=== PATIENT | male | born 1960 | race Caucasian/White ===

== ENCOUNTER 2019-07-23 16:08 | Observation (INO) | payer OTHER, SELFPAY ==
[2019-07-23] VITALS (9 sets, daily range): BP systolic 133–167; BP diastolic 88–108; PULSE 75–100; RESP 13–23; TEMP 36.1–36.9; O2SAT 98–100; BMI 25.7
--- NOTE | ~2019-07-23 | XR_ITS ---
EXAMINATION: XR chest 2V DATE: 07/23/2019 16:53 INDICATION: Central and right-sided dull chest pain. Belching. TECHNIQUE: PA and lateral views of the chest were obtained. COMPARISON: Chest radiograph dated 06/28/2015 FINDINGS: Unchanged mild biapical pleural-parenchymal scarring. Lungs remain otherwise clear with no new airspa ce opacities, pulmonary edema, pleural effusion or pneumothorax. The cardiomediastinal silhouette is normal. Cholecystectomy clips in right upper quadrant. Chronic mild anterior wedging of a midthoracic vertebral body, likely T7. IMPRESSION: 1. No acute cardiopulmonary disease. Reviewed, dictated and finalized at location A. UATION SPECIALIST
--- NOTE | 2019-07-23 16:09 | ECG_ITS ---
Measurements Intervals [place] Rate: 81 P: 59 MN: 147 QRS: 38 QRSD: 89 T: 55 QT: 336 QTc: 391 Interpretive Statements SINUS RHYTHM BORDERLINE ST ABNORMALITY- INFERIOR LEADS BORDERLINE ECG Electronically Signed On 07-23-2019 16:32:49 HAND SILVERING SUPERVISOR by Jett Cueva D.O.
[2019-07-23 16:24] LABS: Basophils Percent Auto 0.3 % (0.2-1.2); Eosinophils Absolute Auto 0.2 K/mm3 (0-0.3); Eosinophils Percent Auto 3.7 % (0-4.4); Hematocrit 45.8 % (42.0-52.0); Hemoglobin 15.3 g/dL (14.0-18.0); Immature Granulocyte Absolute 0.02 K/mm3 (0.00-0.031); Immature Granulocyte Percent A 0.3 % (0-0.5); Lymphocytes Absolute Auto 2.04 K/mm3 (0.9-3.2); Lymphocytes Percent Auto 32.4 % (18.3-44.2); Mean Corpuscular HGB Conc 33.4 g/dl (32-36); Mean Corpuscular Hemoglobin 30.7 pg (26-34); Mean Corpuscular Volume 91.8 fl (80-100); Mean Platelet Volume 10.8 fl (7.4-10.4); Monocytes Absolute Auto 0.4 K/mm3 (0.1-0.6); Monocytes Percent Auto 6.8 % (2.6-8.5); Neutrophils Absolute Auto 3.6 K/mm3 (1.3-6.7); Neutrophils Percent Auto 56.5 % (45.5-73.1); Platelet Count Result 173 k/mm3 (150-375); Red Blood Count 4.99 M/mm3 (4.6-6.20); Red Cell Distribution Width 12.1 % (11.5-14.5); White Blood Count 6.3 K/mm3 (4.5-10.0)
[2019-07-23 16:36] LABS: Partial Thromboplastin Time 30.5 SECONDS (22.3-36.8); Prothrombin Time 12.8 Seconds (11.1-14.7)
[2019-07-23 16:39] LABS: Blood Urea Nitrogen 15 mg/dL (9-20); Calcium 9.8 mg/dL (8.4-10.2); Carbon Dioxide 29 mmol/L (22-30); Chloride 97 mmol/L (98-107); Estimated Glomerular Filt Rate > 60; Glucose 94 mg/dL (75-110); Potassium 3.9 mmol/L (3.4-5.0); Sodium 138 mmol/L (137-145)
[2019-07-23 16:50] LABS: Troponin I < 0.012 ng/mL (0.000-0.034)
--- NOTE | 2019-07-23 17:23 | PC.NURSE ---
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
--- NOTE | 2019-07-23 17:24 | ED_ITS ---
I attest that this documentation has been prepared under the direction and in t he presence of Chicho Martins MD. Jasmyn Yu Scribe 07/23/19;17:24 HPI - Chest Pain General Chief Complaint: Chest Pain Stated Complaint: abnormal ekg Time Seen by Provider: 07/23/19 17:12 Related Data Allergies Allergy/AdvReac Type Severity Reaction Status Date / Time Sulfa (Sulfonamide Allergy Severe Hives / Verified 07/01/16 07:12 Antibiotics) Red Face Penicillins Allergy Unknown A BABY Verified 07/01/16 07:12 [facility] Social History Social History Gender identity (if verbalized by the patient): Male Course Vital Signs Vital signs: Vital Signs Temperature 36.9 C 07/23/19 16:13 Pulse Rate 84 07/23/19 16:13 Respiratory Rate 18 07/23/19 16:13 Blood Pressure 155/108 H 07/23/19 16:13 Pulse Oximetry 100 07/23/19 16:13 Temperature 36.9 C 07/23/19 16:13 Pulse Rate 89 07/23/19 17:20 Respiratory Rate 16 07/23/19 17:20 Blood Pressure 167/105 H 07/23/19 17:20 Pulse Oximetry 100 07/23/19 17:20 MDM - Chest Pain Lab Data Result diagrams: 07/23/19 16:16 07/23/19 16:16 Labs: Lab Results 07/23/19 07/23/19 07/23/19 Range/Units 16:16 16:16 16:16 WBC 6.3 (4.5-10.0) K/mm3 RBC 4.99 (4.6-6.20) M/mm3 Hgb 15.3 (14.0-18.0) g/dL Hct 45.8 (42.0-52.0) % MCV 91.8 (80-100) fl MCH 30.7 (26-34) pg MCHC 33.4 (32-36) g/dl RDW 12.1 (11.5-14.5) % Plt Count 173 (150-375) k/mm3 MPV 10.8 H (7.4-10.4) fl Immature Gran % (Auto) 0.3 (0-0.5) % Neut % (Auto) 56.5 (45.5-73.1) % Lymph % (Auto) 32.4 (18.3-44.2) % [place] % (Auto) 6.8 (2.6-8.5) % Eos % (Auto) 3.7 (0-4.4) % Baso % (Auto) 0.3 (0.2-1.2) % Lymph # (Auto) 2.04 (0.9-3.2) K/mm3 [place] # (Auto) 0.4 (0.1-0.6) K/mm3 Eos # (Auto) 0.2 (0-0.3) K/mm3 Baso # (Auto) 0.0 (0.0-0.1) K/mm3 Abs Immat Gran (auto) 0.02 (0.00-0.031) K/mm3 Absolute Neuts (auto) 3.6 (1.3-6.7) K/mm3 Absolute Nucleated RBC 0.0 (0.0-0.012) K/mm3 Nucleated RBC % 0.0 (0.0-0.2) % PT 12.8 (11.1-14.7) Seconds INR 1.0 APTT 30.5 (22.3-36.8) SECONDS Sodium 138 (137-145) mmol/L Potassium 3.9 (3.4-5.0) mmol/L Chloride 97 L (98-107) mmol/L Carbon Dioxide 29 (22-30) mmol/L BUN 15 (9-20) mg/dL Creatinine 0.90 (0.7-1.3) mg/dL Estim Creat Clear Calc Not Reportable Estimated GFR > 60 (59 - ) Glucose 94 (75-110) mg/dL Calcium 9.8 (8.4-10.2) mg/dL Troponin I < 0.012 (0.000-0.034) ng/mL
--- NOTE | 2019-07-23 18:19 | ED.CHESTPAIN ---
HPI - Chest Pain General Chief Complaint: Chest Pain Stated Complaint: abnormal ekg Time Seen by Provider: 07/23/19 17:12 Source: patient and RN notes reviewed Mode of arrival: other Limitations: no limitations History of Present Illness HPI narrative: Pt is a 59 y/o male who presents to the ED with c/o diffuse chest achy pain that began (07/18/19). Pt states that on Monday (07/21/19), the pain got better. He states that his pain will only last for a few hours. Pt notes that today he went to his PCP today and his PCP sent him to the ED for further evaluation. Pt states that his pain is resolved whenever he goes to sleep. Pt denies any aggravating factors. Pt reports bloating and belching, but denies a fever and SOB. MD complaint: chest pain Onset (ago): day(s) (5) Timing of current episode: episodic Pain location: other (diffuse) Quality: other (achy) Exacerbating factors: nothing Associated symptoms: other (belching, bloating) Related Data Home Medications Medication Instructions Recorded Confirmed aspirin [Aspir-Low] 81 mg PO DAILY 07/23/19 fexofenadine-pseudoephedrine 1 tablet PO Q12H PRN 07/23/19 [Seda-D 12 Hour] pantoprazole 40 mg PO QAM 07/23/19 propranolol 20 mg PO Q12H 07/23/19 Allergies Allergy/AdvReac Type Severity Reaction Status Date / Time Sulfa (Sulfonamide Allergy Severe Hives / Verified 07/01/16 07:12 Antibiotics) Red Face Penicillins Allergy Unknown A BABY Verified 07/01/16 07:12 Review of Systems Review of Systems: All systems reviewed & are unremarkable except as noted in HPI and below Constitutional: Constitutional: Denies fever(s) Cardiovascular: Cardiovascular: Reports chest pain (diffuse) Respiratory: Respiratory: Denies dyspnea Gastrointestinal: Gastrointestinal: Reports belching and Reports bloating PMFSH Past Medical History Medical History (Updated 07/23/19 @ 18:46 by Chicho Martins MD) GERD (gastroesophageal reflux disease) HTN (hypertension) Surgical History Surgical History (Updated 07/23/19 @ 18:29 by Jasmyn Yu) Hx of appendectomy Hx of cholecystectomy Family History Family History (Updated 07/23/19 @ 18:24 by Jasmyn Yu) Father Acute myocardial infarction Social History Social History (Updated 07/23/19 @ 18:24 by Jasmyn Yu) Smoking status: Never smoker Alcohol intake: current Gender identity (if verbalized by the patient): Male Exam Narrative: Exam Narrative: General appearance: Well-developed, well-nourished Skin: Normal color Head: Normocephalic, nontraumatic Eyes: Clear conjunctiva ENT: Oropharynx normal, ears normal, nose normal Neck: Supple, nontender Chest and respiratory: Airway patent, no respiratory distress, no accessory muscle use Heart: Regular rate/rhythm Abdomen: Soft, nontender, no organomegaly, quiet bowel sounds Vascular: Normal peripheral pulses, normal capillary refill. Musculoskeletal: Normal range of motion, nontender back Neurologic: Alert and oriented ?3, XEROX MACHINE OPERATOR is normal as tested, no gross motor deficit Course Course Emergency Course: Asymptomatic, resolved Vital Signs Vital signs: Vital Signs Temperature 36.9 C 07/23/19 16:13 Pulse Rate 84 07/23/19 16:13 Respiratory Rate 18 07/23/19 16:13 Blood Pressure 155/108 H 07/23/19 16:13 Pulse Oximetry 100 07/23/19 16:13 Temperature 36.9 C 07/23/19 16:13 Pulse Rate 87 07/23/19 18:01 Respiratory Rate 16 07/23/19 18:01 Blood Pressure 149/94 H 07/23/19 18:01 Pulse Oximetry 99 07/23/19 18:01 MDM - Chest Pain MDM Narrative Medical decision making narrative: Noncardiac chest pain is my concern. Anxiety, esophagitis, G
[2019-07-23 19:32] LABS: Troponin I < 0.012 ng/mL (0.000-0.034)
[2019-07-23] MEDS: BELLADONNA ALK/PHENOB ELIX 10 ML, MAG HYDROX/ALUMINUM HYD/SIMETH 30 ML, LIDOCAINE HCL 2... PO (20:13)
--- NOTE | 2019-07-23 21:45 | ADMGEN ---
This patient, Christiano Rosenthal, was admitted to [facility]- at 2037. Patient/family oriented to hospital policies and general routines including ID bracelet, bed and alarms, visiting hours, pain management, procedures, bathroom and other care routines, personal items, smoking policy, room service/diet, and visiting hours. Valuables list has been completed. Information on how to activate the Rapid Response Team has been discussed. Patient/Family are encouraged to report perceived risks to care and to ask questions if they do not understand what they are told or what they should do.
[2019-07-23 23:19] LABS: Troponin I < 0.012 ng/mL (0.000-0.034)
--- NOTE | 2019-07-23 23:32 | ECG_ITS ---
Measurements Intervals [place] Rate: 69 P: 59 ND: 149 QRS: 39 QRSD: 90 T: 60 QT: 372 QTc: 400 Interpretive Statements SINUS RHYTHM BORDERLINE ST ABNORMALITY- INF/LAT LEADS BORDERLINE ECG Electronically Signed On 07-24-2019 10:13:19 TESTING ENGINEER by Jett Cueva D.O.
[2019-07-24] VITALS: BP 131/85; PULSE 72; RESP 15; TEMP 36.4; O2SAT 100
--- NOTE | 2019-07-24 | EST_ITS ---
Patient Info Name: Christiano Rosenthal Age: 59 years : 1960 Gender: Male Ht: 71 in Wt: 195 lbs BSA: 2.12 m2 HR: 78 bpm BP: 129 / 85 mmHg Technical Quality: Good Exam Date: 07/24/2019 7:55 AM Exam Location: [facility] Stress Patient Status: Inpatient Admit Date: 07/23/2019 Staff Ordering Physician: Bradford Garcia MD Registered Appraiser: Salina Farnsworth RDCS Attending Provider: Bradford Garcia MD Exercise Technologist: Debbie Leyva CT Exercise Physician: MARTIR Exam Type: CA stress echo Study Info Indications R07.89 - Other chest pain Treadmill exercise stress echocardiogram is performed. Summary 1. Patient exercised on Kyle protocol for 7 minutes and 47 seconds achieving 10 METs. Heart rate at rest 77, increased to 171 at peak exercise which was 105% of max predicated heart rate. BP increased from 129/85 at rest to 154/77. EKG showed normal sinus rhythm at rest with minimal ST depression in inferior leads. At peak exercise EKG showed sinus tachycardia with no ST changes from baseline EKG. 2D echo showed augmentation of left ventricualr systolic function with no evidence of wall motion abnormalities at peak exercise. Stress test is negative by EKG and 2D echo criteria for ischemia. Good exercise tolerance for age. Normal BP and Heart rate response to exercise. No arrhythmia. Protocol: Kyle Stress ECG Details Stage: REST Duration (min): 11 min : 27 sec Speed (mph): 0.0 Grade (%): 0 HR (bpm): 102 SBP (mmHg): 129 DBP (mmHg): 85 METS: --- Stage: STAGE 1 Duration (min): 1 min : 0 sec Speed (mph): 1.7 Grade (%): 10 HR (bpm): 110 SBP (mmHg): 129 DBP (mmHg): 85 METS: --- Stage: STAGE 1 Duration (min): 2 min : 0 sec Speed (mph): 1.7 Grade (%): 10 HR (bpm): 122 SBP (mmHg): 124 DBP (mmHg): 78 METS: --- Stage: STAGE 1 Duration (min): 3 min : 0 sec Speed (mph): 1.7 Grade (%): 10 HR (bpm): 124 SBP (mmHg): 124 DBP (mmHg): 78 METS: --- Stage: STAGE 1 Duration (min): 3 min : 14 sec Speed (mph): 1.7 Grade (%): 10 HR (bpm): 126 SBP (mmHg): 124 DBP (mmHg): 78 METS: --- Stage: STAGE 2 Duration (min): 0 min : 45 sec Speed (mph): 2.5 Grade (%): 12 HR (bpm): 133 SBP (mmHg): 138 DBP (mmHg): 79 METS: --- Stage: STAGE 2 Duration (min): 1 min : 45 sec Speed (mph): 2.5 Grade (%): 12 HR (bpm): 141 SBP (mmHg): 138 DBP (mmHg): 79 METS: --- Stage: STAGE 2 Duration (min): 2 min : 45 sec Speed (mph): 2.5 Grade (%): 12 HR (bpm): 149 SBP (mmHg): 142 DBP (mmHg): 80 METS: --- Stage: STAGE 2 Duration (min): 3 min : 1 sec Speed (mph): 2.5 Grade (%): 12 HR (bpm): 150 SBP (mmHg): 142 DBP (mmHg): 80 METS: --- Stage: STAGE 3 Duration (min): 0 min : 44 sec Speed (mph): 3.4 Grade (%): 14 HR (bpm): 161 SBP (mmHg): 149 DBP (mmHg): 82 METS: --- Stage: STAGE 3 Duration (min):
[2019-07-24 02:00] VITALS: PULSE 69
[2019-07-24 04:00] VITALS: BP 117/80; PULSE 64; RESP 14; TEMP 36.3; O2SAT 100
[2019-07-24 05:50] LABS: Cholesterol 167 mg/dL (0-200); HDL Direct 29 mg/dL; Triglycerides 146 mg/dL (<150)
[2019-07-24 06:01] LABS: LDL Cholesterol Direct 115 mg/dL
[2019-07-24] MEDS: ASPIRIN 81 MG CHEWABLE TABLET PO (07:23)
[2019-07-24 07:40] VITALS: BP 121/88; PULSE 81; PULSE 89; RESP 18; TEMP 36.8; O2SAT 100
--- NOTE | 2019-07-24 08:29 | PM.IMHP ---
H&P: HPI History of Present Illness Chief complaint: CHEST PAIN Narrative: Christiano Rosenthal is a 59 year old male with h/o GERD and HTN who presented with chest pain. He has long history of chest pain due to GERD. He states over the last week the pain was somewhat different. Described as aching in epigastric area with no radiation to the arm or jaw. Pain was not exertional. He went to see his PCP who advised coming to ER. Chest pain free now. EKG with sinus rhythm and borderline ST depression in inferior leads. Had 3negative trop so far. Smoked as teenage and quit in his 20s. Review of Systems Review of Systems: All systems reviewed & are unremarkable except as noted in HPI and below Constitutional: Constitutional: Denies fatigue and Denies headache(s) Eyes: Eyes: Denies blurry vision ENT: Reports Normal hearing present and Denies headache(s) Cardiovascular: Cardiovascular: Denies chest pain, Denies diaphoresis, Denies pedal edema, Denies leg edema, Denies lightheadedness, Denies palpitations and Denies dyspnea Respiratory: Respiratory: Denies cough and Denies dyspnea Gastrointestinal: Gastrointestinal: Denies abdominal pain Musculoskeletal: Musculoskeletal: Denies back pain Neurologic: Reports Normal hearing present and Denies headache(s) Psychiatric: Psychiatric: Denies anxiety Endocrine: Endocrine: Denies fatigue and Denies palpitations PMFSH Past Medical History Medical History (Updated 07/24/19 @ 08:32 by Nisha Myers MD) GERD (gastroesophageal reflux disease) HTN (hypertension) Surgical History Surgical History (Updated 07/23/19 @ 18:29 by Jasmyn Yu) Hx of appendectomy Hx of cholecystectomy Family History Family History (Updated 07/23/19 @ 21:24 by Marcelina Wu RN) Father Acute myocardial infarction Lung cancer Smoking Malignant neoplasm of prostate Tachycardia Mother Diabetes mellitus Dementia Hypertension Sibling Breast cancer Pancreatic cancer Social History Social History (Updated 07/23/19 @ 18:24 by Jasmyn Yu) Smoking packs per day: 10 Smoking cigarettes per day: 200.0 Years smoked: 10 Smoking pack-years: 100.00 Smoking status: Former smoker Alcohol intake: current Gender identity (if verbalized by the patient): Male Meds Home Medications and Allergies Home Medications Medication Instructions Recorded Confirmed Type aspirin [Aspir-Low] 81 mg PO DAILY 07/23/19 07/23/19 History fexofenadine-pseudoephedrine 1 tablet PO Q12H PRN 07/23/19 07/23/19 History [Seda-D 12 Hour] pantoprazole [Protonix] 40 mg PO QAM 07/23/19 07/23/19 History propranolol 20 mg PO Q12H 07/23/19 07/23/19 History Allergies Allergy/AdvReac Type Severity Reaction Status Date / Time Sulfa (Sulfonamide Allergy Severe Hives / Verified 07/01/16 07:12 Antibiotics) Red Face Penicillins Allergy Unknown A BABY Verified 07/01/16 07:12 Vital Signs Vital Signs - 24 hr 07/23/19 16:13 07/23/19 17:20 07/23/19 18:01 Temperature 36.9 C Pulse Rate 84 89 87 Respiratory Rate 18 16 16 Blood Pressure 155/108 H 167/105 H 149/94 H Pulse Oximetry 100 100 99 07/23/19 19:07 07/23/19 20:16 07/23/19 20:29 Temperature 36.8 C 36.8 C Pulse Rate 88 94 100 Respiratory Rate 16 23 H 16 Blood Pressure 141/97 H 134/98 H 133/88 Pulse Oximetry 100 98 99 07/23/19 20:38 07/23/19 20:45 07/23/19 21:56 Temperature 36.1 C L Pulse Rate 83 85 75 Respiratory Rate 13 Blood Pressure 149/97 H Pulse Oximetry 100 07/24/19 00:00 07/24/19 02:00 07/24/19 04:00 Temperature 36.4 C 36.3 C L Pulse Rate 72 69 64 Respiratory Rate 15 14 Blood Pressure 131/85 117/80 Pulse Oximetry 100 100 Exam Const: General: no acute distress Eyes: Sclera: sclerae normal Neck: Neck: no JVD Carotids: no bruits Resp: Effort & Inspection: normal respiratory effort Auscultation: clear to auscultation bilaterally Cardio: Rate: regular rate and no
--- NOTE | 2019-07-24 09:04 | PC.NURSE ---
0750: DOWN VIA FOR STRESS ECHO. VOICES NO C/O.
--- NOTE | 2019-07-24 09:06 | PC.NURSE ---
0833: RETURNS TO [facility] 6 VIA WC FROM STRESS ECHO. VOICES NO C/O.
--- NOTE | 2019-07-24 10:13 | PC.NURSE ---
DR. MCMAHAN HERE TO SEE PT.
--- NOTE | 2019-07-24 11:54 | PC.NURSE ---
1055: DISCHARGED HOME, OUT AMBULATORY TO OWN PRIVATE CAR, WITH ALL PERSONAL BELONGINGS AND DISCHARGE INSTRUCTIONS AND LIST OF GI PROVIDERS. VOICES NO C/O. STEADY GAIT.
--- NOTE | 2019-09-13 17:03 | PM.DS ---
DS: Diagnosis Admitting Diagnosis Admitting Diagnosis: Chest pain, unspecified DS: Summary Time Spent with Patient Time attestation: Chief complaint: CHEST PAIN Narrative: Christiano Rosenthal is a 59 year old male with h/o GERD and HTN who presented with chest pain. He has long history of chest pain due to GERD. He states over the last week the pain was somewhat different. Described as aching in epigastric area with no radiation to the arm or jaw. Pain was not exertional. He went to see his PCP who advised coming to ER. Chest pain free now. EKG with sinus rhythm and borderline ST depression in inferior leads. Had 3negative trop so far. Smoked as teenage and quit in his 20s. Total time spent providing and/or coordinating discharge services: Exam Const: General: no acute distress Eyes: Sclera: sclerae normal Neck: Neck: no JVD Carotids: no bruits Resp: Effort & Inspection: normal respiratory effort Auscultation: clear to auscultation bilaterally Cardio: Rate: regular rate and not tachycardic Rhythm: regular rhythm Heart sounds: no gallops, no murmurs and no rubs GI: GI Palp: Yes Soft to palpation and No Tenderness to palpation present (GI) Skin: General skin exam: normal color Neuro: Cranial nerves: Yes Normal hearing present Speech: normal speech Extrem: General: normal to inspection and no edema Psych: Affect: normal affect Discharge Plan Discharge Attending physician on discharge: Nisha Myers Consulting providers: Jett Cueva ; Matthew Tillman Discharging Clinician: Nisha Myers Anticipated Discharge Date/Time: 07/24/19 10:19 Patient Disposition: Home, Self-Care Activity: unlimited Diet: as tolerated and low cholesterol Patient Instructions: Antibiotic Form, Chest Pain (DC) Stand Alone Forms: General Discharge Information Follow-up/Referrals: UNKNOWN,DOCTOR [Non-Staff] - Discharge Medications: Continued aspirin [Aspir-Low] 81 mg Tablet,Delayed Release (Dr/Ec) 81 mg PO DAILY RF: 0 pantoprazole [Protonix] 40 mg Tablet,Delayed Release (Dr/Ec) 40 mg PO QAM RF: 0 propranolol 20 mg Tablet 20 mg PO Q12H RF: 0 Discontinued fexofenadine-pseudoephedrine [Seda-D 12 Hour] 60-120 mg Tablet Extended Release 12 Hr 1 tablet PO Q12H PRN (Reason: Allergic Symptoms) RF: 0 No Action multivitamin [Daily Multiple] Tablet 1 tablet PO DAILY RF: 0 prednisolone acetate 1 % drops,suspension 1 drp LEFTEYE HS RF: 0 bromfenac 0.09 % drops 1 drp LEFTEYE QAM RF: 0 Date of admission: 07/23/19 19:22 [facility] Admitting Provider: Bradford Garcia Discharge Date/Time: 07/24/19 10:55 Attending physician on admission: Nisha Myers Condition: Stable
== END 2019-07-24 10:55 | disposition home or self-care (01) ==
LOC: ANHED 18:46 → ANHCPC 07-24 01:45
PROVIDERS: Emergency Medicine; Admitting Provider Specialist; Emergency Provider Emergency Medicine; PCP Family Medicine; Visit Provider Internal Medicine
DX: R07.9 Chest pain, unspecified (principal); I10 Essential (primary) hypertension; K21.9 Gastro-esophageal reflux disease without esophagitis; Z87.891 Personal history of nicotine dependence; Z79.82 Long term (current) use of aspirin; Z79.899 Other long term (current) drug therapy; Z88.0 Allergy status to penicillin; Z88.2 Allergy status to sulfonamides
CPT/HCPCS: 36415; 71046; 80048; 80061; 84484; 85025; 85610; 85730; 93005; 93351; 99285; A9270; G0378

== ENCOUNTER 2021-09-16 00:52 | Day surgery (SDC) | payer OTHER, SELFPAY ==
[2021-09-07 09:02] VITALS: BMI 27.7
--- NOTE | 2021-09-15 10:28 | P.PNAN_ITS ---
Anes - Initial Pre Proc Eval Procedure: Operation Date: 09/16/21 11:30 Proposed Procedures p Esophagogastroduodenoscopy & Screening Colonoscopy - Kaden Samaniego MD Date/Time: 09/15/21 10:28 Surgeon: Kaden Samaniego MD Pre Op Diagnosis: neoplasm screening, GERD Patient Data Age: 61 Gender: M Height: 1.85 m Weight: 95.45 kg Allergies Allergy/AdvReac Type Severity Reaction Status Date / Time Sulfa (Sulfonamide Allergy Severe Hives / Verified 09/16/21 10:21 Antibiotics) Red Face Penicillins Allergy Unknown Unknown Verified 09/16/21 10:21 Home Medications Medication Instructions Recorded Confirmed Type aspirin [Aspir-Low] 81 mg PO DAILY 07/23/19 09/16/21 History pantoprazole [Protonix] 40 mg PO QAM 07/23/19 09/16/21 History propranolol 20 mg PO Q12H 07/23/19 09/16/21 History bromfenac 1 drp LEFTEYE QAM 07/24/19 09/16/21 History multivitamin [Daily Multiple] 1 tablet PO DAILY 07/24/19 09/16/21 History prednisolone acetate 1 drp LEFTEYE HS 07/24/19 09/16/21 History Patient hx anesthesia problems: none Family hx anesthesia problems: none Results Review: All pre-operative results and documents have been reviewed as part of the pre-operative evaluation. [facility] Past Medical History Medical History (Updated 09/15/21 @ 16:39 by Kaden Samaniego MD) Asthma Deep vein thrombophlebitis of leg GERD (gastroesophageal reflux disease) Glaucoma HTN (hypertension) PVD (peripheral vascular disease) Surgical History Surgical History (Updated 07/23/19 @ 18:29 by Jasmyn Yu) Hx of appendectomy Hx of cholecystectomy Family History Family History (Updated 07/23/19 @ 21:24 by Marcelina Wu RN) Father Acute myocardial infarction Lung cancer Smoking Malignant neoplasm of prostate Tachycardia Mother Diabetes mellitus Dementia Hypertension Sibling Breast cancer Pancreatic cancer Social History Social History (Updated 09/16/21 @ 10:53 by Marco Oneal DO) Smoking packs per day: 0.5 Smoking cigarettes per day: 10.0 Years smoked: 10 Smoking pack-years: 5.00 Smoking status: Former smoker Alcohol intake: current Alcohol use details: occasionally Substance use: never Substance use type: does not use Living arrangements: with family Gender identity (if verbalized by the patient): Male Spiritual care concerns: No Anes - Eval Final PreProcedure Day of Procedure 09/15/21 10:28 Patient weight: overweight Heart: regular rate and rhythm Lungs: clear to auscultation and normal air movement Airway: Mallampati scale class II Neurological: alert and oriented Last oral intake: >/= 8 hours ASA classification: III Emergent: no Anesthetic plan: proceed Anesthesia type and monitoring: general GIVS and standard monitoring Results Review: All pre-operative results and documents have been reviewed as part of the pre-operative evaluation. Informed Consent: The patient's anesthetic plan and its attendant risks and benefits were discussed with the patient/family/POA. Questions were solicited and answers provided to the satisfaction of the patient/family/POA.
--- NOTE | 2021-09-15 16:38 | WPDGICN ---
Assessment and Plan Assessment and plan (1) GERD (gastroesophageal reflux disease): Code(s): K21.9 - Gastro-esophageal reflux disease without esophagitis Status: Acute Assessment and Plan: EGD with possible biopsy or dilatation or cautery. (2) Colon cancer screening: Code(s): Z12.11 - Encounter for screening for malignant neoplasm of colon Status: Acute Assessment and Plan: Colonoscopy with possible biopsy or polypectomy or cautery or injection of substances. GI Consult Note Consult date/time: 09/15/21 16:38 HPI: Christiano Rosenthal is a 61 year old male long history of gastroesophageal reflux disease who has been maintained on pantoprazole 40 mg per day. He states that he frequently gets pains in his chest. He had that 2 years ago when he has last EGD. He thought it could be his heart. At times pain is noticed when he takes a deep breath. He occasionally feels when he swallows as though he can tell something is going down but it does not get stuck. Rarely a piece of bread might feel like it hangs up. He burps excessively which is 1 of his primary concern. His last colonoscopy was 10 years ago and was unremarkable. Review of Systems Review of Systems: All systems reviewed & are unremarkable except as noted in HPI and below PMFSH Past Medical History Medical History (Updated 09/15/21 @ 16:39 by Kaden Samaniego MD) Asthma Deep vein thrombophlebitis of leg GERD (gastroesophageal reflux disease) Glaucoma HTN (hypertension) PVD (peripheral vascular disease) Surgical History Surgical History (Updated 07/23/19 @ 18:29 by Jasmyn Yu) Hx of appendectomy Hx of cholecystectomy Family History Family History (Updated 07/23/19 @ 21:24 by Marcelina Wu RN) Father Acute myocardial infarction Lung cancer Smoking Malignant neoplasm of prostate Tachycardia Mother Diabetes mellitus Dementia Hypertension Sibling Breast cancer Pancreatic cancer Social History Social History (Updated 07/23/19 @ 18:24 by Jasmyn Yu) Smoking packs per day: 0.5 Smoking cigarettes per day: 10.0 Years smoked: 10 Smoking pack-years: 5.00 Smoking status: Former smoker Alcohol intake: current Alcohol use details: occasionally Substance use: never Substance use type: does not use Living arrangements: with family Gender identity (if verbalized by the patient): Male Spiritual care concerns: No Meds Home Medications and Allergies Home Medications Medication Instructions Recorded Confirmed Type aspirin [Aspir-Low] 81 mg PO DAILY 07/23/19 09/16/21 History pantoprazole [Protonix] 40 mg PO QA 07/23/19 09/16/21 History propranolol 20 mg PO Q12H 07/23/19 09/16/21 History bromfenac 1 drp LEFTEYE QA 07/24/19 09/16/21 History multivitamin [Daily Multiple] 1 tablet PO DAILY 07/24/19 09/16/21 History prednisolone acetate 1 drp LEFTEYE 07/24/19 09/16/21 History Allergies Allergy/AdvReac Type Severity Reaction Status Date / Time Sulfa (Sulfonamide Allergy Severe Hives / Verified 09/16/21 10:21 Antibiotics) Red Face Penicillins Allergy Unknown Unknown Verified 09/16/21 10:21 Exam Resp: Auscultation: clear to auscultation bilaterally Cardio: Rate: regular rate Rhythm: regular rhythm GI: GI Palp: Yes Soft to palpation and No Tenderness to palpation present (GI)
[2021-09-16 10:22] VITALS: BP 130/85; PULSE 86; RESP 18; TEMP 35.9; O2SAT 100
[2021-09-16] MEDS: LACTATED RINGERS 1,000 ML 150 ML IV CONT (10:27)
[2021-09-16] MEDS: BENZOCAINE (*SP) 60 ML SPRAY CAN (HURRICAINE) 1 SPRAY MUCOUS MEM (11:32)
--- NOTE | 2021-09-16 11:46 | SUR.OPER ---
EGD end 1138 Colonoscopy start 1142
[2021-09-16 12:01] VITALS: BP 105/71; PULSE 81; RESP 17; O2SAT 97
[2021-09-16 12:11] VITALS: BP 113/74; PULSE 83; RESP 20; O2SAT 98
[2021-09-16 12:21] VITALS: BP 115/78; PULSE 85; RESP 16; O2SAT 99
== END 2021-09-16 12:54 | disposition home or self-care (01) ==
PROVIDERS: PCP Family Medicine; Visit Provider Internal Medicine Gastroenterology
PROC: 0DJ08ZZ Inspection of Upper Intestinal Tract, Via Natural or Artificial Opening Endoscopic (ICD-10-PCS; CPT 43235; principal; 2021-09-16 11:30)
DX: Z12.11 Encounter for screening for malignant neoplasm of colon (principal); K21.9 Gastro-esophageal reflux disease without esophagitis; K92.1 Melena; K64.8 Other hemorrhoids; Z80.0 Family history of malignant neoplasm of digestive organs
CPT/HCPCS: 45378; 43239; 88305; J2001; J2704; J7120

== ENCOUNTER 2021-12-15 18:22 | Emergency (ER) | payer OTHER, SELFPAY ==
[2021-12-15] VITALS (27 sets, daily range): BP systolic 122–155; BP diastolic 76–98; PULSE 100–119; RESP 12–23; TEMP 37; O2SAT 95–100
--- NOTE | ~2021-12-15 | XR_ITS ---
EXAMINATION: XR chest 2V Exam Date/Time: 12/15/2021 19:00 CDT HISTORY: MIDSTERNAL TO LT SIDED chest pain SINCE AM, NO CARDIAC HX Comparison: 07/23/2019. RESULT: Lines, tubes, and devices: None. Lungs and pleura: Clear. Cardiomediastinal silhouette: Stable cardiomediastinal silhouette. Other: No acute osseous or upper abdominal finding. IMPRESSION: No acute cardiopulmonary process. Reviewed, dictated and finalized at location K.
--- NOTE | 2021-12-15 18:24 | ECG_ITS ---
Measurements Intervals [place] Rate: 105 P: 63 [place]: 146 QRS: 30 QRSD: 88 T: 56 QT: 315 QTc: 417 Interpretive Statements SINUS TACHYCARDIA POSSIBLE LEFT ATRIAL ENLARGEMENT [-0.1mV P WAVE IN V1/V2] ABNORMAL RHYTHM ECG MINOR NONSPECIFIC ST CHANGES COMPARED TO ECG 07/23/2019 22:32:30 SINUS TACHYCARDIA NOW PRESENT Electronically Signed On 12-15-2021 22:21:08 CDT by Sonya Sales M.D.
[2021-12-15 18:53] LABS: Prothrombin Time 12.5 Seconds (11.1-14.7)
[2021-12-15 18:54] LABS: Partial Thromboplastin Time 25.4 SECONDS (22.3-36.8)
[2021-12-15] MEDS: ASPIRIN 81 MG CHEWABLE TABLET 324 MG PO (20:00)
--- NOTE | 2021-12-15 20:14 | ED.CHESTPAIN ---
HPI - Chest Pain General Chief Complaint: Chest Pain <Marsha Ayala MD - Last Filed: 12/15/21 22:41> Stated Complaint: chest pain <Marsha Ayala MD - Last Filed: 12/15/21 22:41> Time Seen by Provider: 12/15/21 19:58 <Marsha Ayala MD - Last Filed: 12/15/21 22:41> Source: patient <Marsha Ayala MD - Last Filed: 12/15/21 22:41> Mode of arrival: ambulatory <Marsha Ayala MD - Last Filed: 12/15/21 22:41> Limitations: no limitations <Marsha Ayala MD - Last Filed: 12/15/21 22:41> History of Present Illness HPI narrative: This is a 61 year old male who presents for evaluation of left chest pain. PAtient states he developed chest pain this morning at 7 am this morning. He states his pain has been constant. It will intermittently worsens and improve. He describes pain as sharp and pressure. He states his pain seems worse with position and breathing. He reports chronic shortness of breath since being diagnosed with covid in October, but he states his shortness of breath has not worsened. He had some dizziness and nausea while in waiting room. HE has been taking antiacids for his pain without relief. He states 2 years ago he was evaluated for chest pain with ECHO and stress test. THis evaluation was unremarkable. <Marsha Ayala MD - Last Filed: 12/15/21 22:41> Related Data Home Medications: Home Medications Medication Instructions Recorded Confirmed aspirin 81 mg tablet,delayed 81 mg PO DAILY 07/23/19 09/16/21 release (Aspir-Low) pantoprazole 40 mg tablet,delayed 40 mg PO QAM 07/23/19 09/16/21 release (Protonix) propranolol 20 mg tablet 20 mg PO Q12H 07/23/19 09/16/21 bromfenac 0.09 % eye drops 1 drp LEFT EYE QAM 07/24/19 09/16/21 multivitamin (Daily Multiple 1 tablet PO DAILY 07/24/19 09/16/21 tablet) prednisolone acetate 1 % eye 1 drp LEFT EYE HS 07/24/19 09/16/21 drops,suspension <Marsha Ayala MD - Last Filed: 12/15/21 22:41> Allergies/Adverse Reactions: Allergies Allergy/AdvReac Type Severity Reaction Status Date / Time Sulfa (Sulfonamide Allergy Severe Hives / Verified 12/15/21 20:02 Antibiotics) Red Face Penicillins Allergy Unknown Unknown Verified 12/15/21 20:02 <Marsha Ayala MD - Last Filed: 12/15/21 22:41> Review of Systems Review of Systems: All systems reviewed & are unremarkable except as noted in HPI and below <Marsha Ayala MD - Last Filed: 12/15/21 22:41> Constitutional: Constitutional: Denies chills and Reports fatigue <Marsha Ayala MD - Last Filed: 12/15/21 22:41> ENT: Reports nasal congestion and Denies sore throat <Marsha Ayala MD - Last Filed: 12/15/21 22:41> Cardiovascular: Cardiovascular: Reports chest pain, Denies rapid heart rate and Denies slow heart rate <Marsha Ayala MD - Last Filed: 12/15/21 22:41> Respiratory: Respiratory: Denies chest congestion, Denies cough and Reports dyspnea <Marsha Ayala MD - Last Filed: 12/15/21 22:41> Gastrointestinal: Gastrointestinal: Denies abdominal pain, Denies bloating and Reports nausea <Marsha Ayala MD - Last Filed: 12/15/21 22:41> [facility] Past Medical History Medical History: Medical History Asthma Deep vein thrombophlebitis of leg GERD (gastroesophageal reflux disease) Glaucoma HTN (hypertension) PVD (peripheral vascular disease) <Marsha Ayala MD - Last Filed: 12/15/21 22:41> Surgical History Surgical History: Surgical History (Updated 07/23/19 @ 18:29 by Jasmyn Yu) Hx of appendectomy Hx of cholecystectomy <Marsha Ayala MD - Last Filed: 12/15/21 22:41> Family History Family History: Family History (Updated 07/23/19 @ 21:24 by Marcelina L. Popek, RN) Father Acute myocardial infarction Lung cancer Smoking Malignant neoplasm of prostate Tachycardia Mother Diabetes mellitus Dementia Hypertens
[2021-12-15] MEDS: SODIUM CHLORIDE 0.9% IV 1,000 ML 999 ML IV CONT ×2 (20:27→22:56)
[2021-12-15 20:38] LABS: Basophils Percent Auto 0.3 % (0.2-1.2); Eosinophils Percent Auto 0.3 % (0-4.4); Hematocrit 42.2 % (42.0-52.0); Immature Granulocyte Absolute 0.05 K/mm3 (0.00-0.031); Immature Granulocyte Percent A 0.4 % (0-0.5); Lymphocytes Absolute Auto 1.13 K/mm3 (0.9-3.2); Lymphocytes Percent Auto 10.1 % (18.3-44.2); Mean Corpuscular HGB Conc 33.2 g/dl (32-36); Mean Corpuscular Hemoglobin 30.8 pg (26-34); Mean Corpuscular Volume 92.7 fl (80-100); Mean Platelet Volume 10.9 fl (7.4-10.4); Monocytes Absolute Auto 0.7 K/mm3 (0.1-0.6); Monocytes Percent Auto 6.1 % (2.6-8.5); Neutrophils Absolute Auto 9.2 K/mm3 (1.3-6.7); Neutrophils Percent Auto 82.8 % (45.5-73.1); Platelet Count Result 123 k/mm3 (150-375); Red Blood Count 4.55 M/mm3 (4.6-6.20); Red Cell Distribution Width 13.1 % (11.5-14.5); White Blood Count 11.2 K/mm3 (4.5-10.0)
[2021-12-15 20:46] LABS: Alanine Aminotransferase 35 U/L (6-50); Albumin Level 4.8 g/dL (3.5-5.1); Alkaline Phosphatase 101 U/L (38-126); Anion Gap 6 mmol/L (8-16); Aspartate Amino Transferase 34 U/L (17-59); Bilirubin,Total 0.8 mg/dL (0.2-1.3); Blood Urea Nitrogen 17 mg/dL (9-20); Calcium 9.2 mg/dL (8.4-10.2); Carbon Dioxide 28 mmol/L (22-30); Chloride 102 mmol/L (98-107); Estimated CRCL calculation 87 ml/min; Estimated Glomerular Filt Rate > 60; Glucose 116 mg/dL (65-110); Lipase 96 U/L (23-300); Potassium 4.1 mmol/L (3.4-5.0); Sodium 136 mmol/L (137-145)
[2021-12-15 20:57] LABS: Troponin I < 0.012 ng/mL (0.000-0.034)
[2021-12-15 21:42] LABS: D Dimer < 0.22 ug/mL (<0.48)
[2021-12-15] MEDS: BELLADONNA ALK/PHENOB ELIX 10 ML, MAG HYDROX/ALUMINUM HYD/SIMETH 30 ML, LIDOCAINE HCL 2... PO (22:08)
[2021-12-15] MEDS: KETOROLAC 30 MG/ML VIAL (*BKC) IV PUSH (22:09)
[2021-12-15] MEDS: LACTATED RINGERS 1,000 ML 999 ML IV CONT (22:57)
[2021-12-16] VITALS (7 sets, daily range): BP systolic 128–146; BP diastolic 87–97; PULSE 99–109; RESP 13–20; O2SAT 96–100
[2021-12-16 00:04] LABS: Troponin I < 0.012 ng/mL (0.000-0.034)
[2021-12-16] MEDS: FAMOTIDINE 20 MG/2 ML VIAL IV PUSH (00:13)
== END 2021-12-16 01:43 | disposition home or self-care (01) ==
PROVIDERS: Family Medicine; General Practice; Emergency Provider Emergency Medicine; PCP Family Medicine
DX: R07.9 Chest pain, unspecified (principal); I10 Essential (primary) hypertension; I73.9 Peripheral vascular disease, unspecified; J45.909 Unspecified asthma, uncomplicated; H40.9 Unspecified glaucoma; K21.9 Gastro-esophageal reflux disease without esophagitis; Z86.718 Personal history of other venous thrombosis and embolism; Z87.891 Personal history of nicotine dependence; Z79.82 Long term (current) use of aspirin; R00.0 Tachycardia, unspecified; R94.31 Abnormal electrocardiogram [ECG] [EKG]
CPT/HCPCS: 36415; 71046; 80053; 83690; 84484; 85025; 85055; 85380; 85610; 85730; 93005; 96361; 96365; 96374; 96375; 99284; A9270; J0131; J1885; J7030; J7120

== ENCOUNTER 2022-06-13 18:53 | Emergency (ER) | payer OTHER, SELFPAY ==
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
[2022-06-13 19:11] VITALS: BP 165/91; PULSE 92; RESP 16; TEMP 36.9; O2SAT 100
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
[2022-06-13 20:52] LABS: Basophils Percent Auto 0.4 % (0.2-1.2); Eosinophils Absolute Auto 0.2 K/mm3 (0-0.3); Eosinophils Percent Auto 2.3 % (0-4.4); Immature Granulocyte Absolute 0.04 K/mm3 (0.00-0.031); Immature Granulocyte Percent A 0.4 % (0-0.5); Lymphocytes Absolute Auto 1.59 K/mm3 (0.9-3.2); Lymphocytes Percent Auto 16.6 % (18.3-44.2); Mean Corpuscular HGB Conc 34.1 g/dl (32-36); Mean Corpuscular Hemoglobin 30.6 pg (26-34); Mean Corpuscular Volume 89.7 fl (80-100); Mean Platelet Volume 10.6 fl (7.4-10.4); Monocytes Absolute Auto 0.5 K/mm3 (0.1-0.6); Monocytes Percent Auto 5.2 % (2.6-8.5); Neutrophils Absolute Auto 7.2 K/mm3 (1.3-6.7); Neutrophils Percent Auto 75.1 % (45.5-73.1); Platelet Count Result 152 k/mm3 (150-375); Red Blood Count 4.57 M/mm3 (4.6-6.20); Red Cell Distribution Width 12.7 % (11.5-14.5); White Blood Count 9.6 K/mm3 (4.5-10.0)
[2022-06-13 20:55] LABS: Appearance Urine Clear (Clear); Bilirubin Urine Negative (Negative); Blood Urine 2+ (Negative); Color Urine Yellow (Yellow); Glucose Urine UA Negative (Negative); Ketones Urine Negative (Negative); Leukocyte Esterase Ur Negative LEU/UL (Negative); Nitrate Urine Negative (Negative); Protein Urine Negative (Negative); Specific Grav Ur 1.015 (1.001-1.035); Urobilinogen Urine 0.2 mg/dL (<2.0)
[2022-06-13 21:00] LABS: Mucus Urine Rare /lpf; RBC Urine 51-75 /hpf (0-2)
[2022-06-13 21:10] LABS: Alanine Aminotransferase 38 U/L (6-50); Albumin Level 4.7 g/dL (3.5-5.1); Alkaline Phosphatase 98 U/L (38-126); Anion Gap 10 mmol/L (8-16); Aspartate Amino Transferase 33 U/L (17-59); Bilirubin,Total 0.6 mg/dL (0.2-1.3); Blood Urea Nitrogen 14 mg/dL (9-20); Calcium 9.1 mg/dL (8.4-10.2); Carbon Dioxide 26 mmol/L (22-30); Chloride 101 mmol/L (98-107); Estimated CRCL calculation 95 ml/min; Estimated Glomerular Filt Rate > 60; Glucose 102 mg/dL (65-110); Potassium 3.8 mmol/L (3.4-5.0); Sodium 137 mmol/L (137-145)
[2022-06-13 21:11] LABS: Add Urine Microscopic? YES
== END 2022-06-13 22:54 | disposition home or self-care (01) ==
PROVIDERS: Emergency Provider Emergency Medicine; PCP Family Medicine
DX: S16.1XXA Strain of muscle, fascia and tendon at neck level, initial encounter (principal); S30.1XXA Contusion of abdominal wall, initial encounter; J45.909 Unspecified asthma, uncomplicated; I10 Essential (primary) hypertension; I73.9 Peripheral vascular disease, unspecified; H40.9 Unspecified glaucoma; K21.9 Gastro-esophageal reflux disease without esophagitis; Z79.82 Long term (current) use of aspirin; Z86.718 Personal history of other venous thrombosis and embolism; Z87.891 Personal history of nicotine dependence; V49.40XA Driver injured in collision with unspecified motor vehicles in traffic accident, initial encounter
CPT/HCPCS: 36415; 70450; 71260; 72125; 73080; 73502; 74177; 80053; 81001; 85025; 99284; Q9967

== ENCOUNTER 2022-06-28 12:55 | Outpatient (RCR) | payer OTHER, SELFPAY ==
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
== END 2022-07-29 23:59 | disposition home or self-care (01) ==
LOC: CHSPT 12:55
PROVIDERS: Visit Provider Family Medicine
DX: S39.012D Strain of muscle, fascia and tendon of lower back, subsequent encounter (principal)
CPT/HCPCS: 97014; 97110; 97140; 97161; G0283

== ENCOUNTER 2024-10-08 14:35 | Outpatient (CLI) | payer OTHER, SELFPAY ==
--- NOTE | ~2024-10-08 | XR_ITS ---
CHEST RADIOGRAPH, PA AND LATERAL CLINICAL HISTORY: Z80.1 - Family history of malignant neoplasm of trachea, ... . COMPARISON: 12/15/2021 TECHNIQUE: PA and lateral views of the chest. FINDINGS The cardiomediastinal silhouette is unremarkable. Biapical scarring. Remainder of the lungs are clear. IMPRESSION: Biapical scarring, without focal infiltrate or effusion. For adequate screening evaluation, would recommend CT screening of the chest for further evaluation Reviewed, dictated and finalized at location A. IMPRESSION: Biapical scarring, without focal infiltrate or effusion. For adequate screening evaluation, would recommend CT screening of the chest fo r further evaluation
--- OUTSIDE RECORDS SUMMARY | 2024-10-08 16:09 | XMS_ITS | Encounter Summary ---
Author Organization [facility] Address [address] [place] [address] Phone Care Team Providers Care Care Worker Name Role Phone Meghan Campo MD Primary Care Provider [phone] Isidro Landon MD Primary Care Provider [phone] Unknown, Notinfile Primary Care Provider Unavail able Encounter Details Date Type Department Care Team (Latest Contact Info) Description 06/13/2022 Orders Only [facility] Penny Ingram, [place] [address] [facility] [address] [place] [address] Social History Tobacco Use Types Packs/Day Years Used Date Smoking Tobacco: Former Sex and Gender Information Value Date Recorded Sex Assigned at Not on file Legal Sex Male 3:20 AM [employer] Gender Identity Not on file Sexual Orientation Not on file documented as of this encounter Plan of Treatment Not on file documented as of this encounter Procedures Procedure Name Priority Date/Time Associated Diagnosis Comments SCAN - LABS 06/13/2022 documented in this encounter Results * SCAN - LABS (06/13/2022) Penny Ingram RN Final Result documented in this encounter Visit Diagnoses Not on filedocumented in this encounter Care Teams Care Worker Relationship Specialty Start Date End Date Meghan Campo MD [address] [address] PCP - General 4/26/17 10/30/23 Isidro Landon MD [address] [place] [place] [address] PCP - General Family Medicine 05/09/23 10/02/24 Unknown, Notinfile PCP - General 10/03/24 10/03/24 documented as of this encounter
--- OUTSIDE RECORDS SUMMARY | 2024-10-08 16:09 | XMS_ITS | Referral Summary ---
Author Organization [facility] Address [address] [place] [address] Care Team Providers Care Twister In Name Role Phone Unavailable Primary Care Provider Unavailabl e Encounters Date Type Department Care Team Description 10/03/2024 8:15 AM CDT Office Visit [facility] Ophthalmology [address] [facility] [address] 6th [place] [address] Amrita Andrade MD PhD S/P PKP OS (Primary Dx); Band keratopathy of left eye from Last 3 Months Allergies Active Allergy Reactions Criticality Noted Date Comments Penicillins Unknown Sulfa (Sulfonamide Antibiotics) Blisters High Medications aspirin 81 mg tablet Active atorvastatin (LIPITOR) 10 mg tablet atorvastatin 10 mg tablet Active multivit with minerals/lutein (MULTIVITAMIN 50 PLUS ORAL) multivitamin 1 TAB DAILY 07/08/20 13 Active ascorbic acid (VITAMIN C) 100 mg tablet Vitamin C 1 TAB DAILY 07/08/20 13 Active albuterol HFA (PROVENTIL HFA,VENTOLIN HFA,PROAIR HFA) 90 mcg/actuation inhaler albuterol sulfate HFA 90 mcg/actuation aerosol inhaler INHALE 2 PUFF(S) EVERY 6 HOURS BY INHALATION ROUTE NEEDED Active fluticasone propionate (FLONASE) 50 mcg/actuation nasal spray fluticasone propionate 50 mcg/actuation nasal spray,suspension Active ibuprofen (ADVIL,MOTRIN) 600 mg tablet ibuprofen 600 mg tablet PRN Active naproxen (NAPROSYN) 500 mg tablet naproxen 500 mg tablet Active sildenafiL (VIAGRA) 100 mg tablet Viagra 100 mg tablet Take 1 tablet every day by oral route as needed. 03/04/[address] (PROTONIX) 40 mg EC tablet Take 1 tablet (40 mg total) by mouth every morning 07/13/19 23 Active propranoloL (INDERAL) 40 mg tabletIndicatio ns:Hypertension , unspecified type TAKE 1 TABLET BY MOUTH TWICE A DAY 180 tablet 1 08/02/19 25 Active bacitracin-poly myxin B (POLYSPORIN) ophthalmic ointment Apply to right eye 3 (three) times a day 3.5 g 11 10/04/19 25 Active bromfenac 0.09 % ophthalmic solution Administer 1 drop into the left eye daily 5.1 mL 3 10/04/19 25 Active prednisoLONE acetate (PRED FORTE) 1 % ophthalmic suspension Administer 1 drop into the left eye daily 15 mL 3 10/04/19 25 Active bacitracin-poly myxin B (POLYSPORIN) ophthalmic ointment Apply to right eye 3 (three) times a day 3.5 g 11 12/12/19 19 025 Discontin ued(Reord er) bromfenac 0.09 % ophthalmic solution INSTILL 1 DROP INTO THE LEFT EYE DAILY 5.1 mL 2 01/24/20 24 025 Discontin ued(Reord er) prednisoLONE acetate (PRED FORTE) 1 % ophthalmic suspension INSTILL 1 DROP INTO THE LEFT EYE DAILY 5 mL 1 05/16/20 24 025 Discontin ued(Reord er) Active Problems Problem Noted Date Diagnosed Date Cataract of right eye 10/03/2023 Assessment & Plan (10/03/2023 10:33 AM CDT): Tr NSC Observe F/u 1yr w/ , [facility] HTN (hypertension), benign 08/05/2023 Left-sided carotid artery disease 08/05/2023 Dyslipidemia 05/14/2023 Encounter to establish care with new doctor 11/2022 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 Assessment & Plan (10/03/2023 10:30 AM CDT): Failed graft w/ band K -stable Assessment & Plan (10/04/2022 2:38 PM CDT): Failed vascularized graft Small epi defect nasally overlying area of band K and diffuse PEE DFE deferred today by pt due to lack of residential recycle driver MRx given today, polycarbs for monocular precautions PF/bromfenac for pain prn RTC 1 year w DFE OD Assessment & Plan (10/05/2021 2:09 PM CDT): Failed vascularized graft Small epi defect nasally overlying area of band K PF/bromfenac for pain prn RTC 1 year w DFE OD Assessment & Plan (01/01/2019 1:22 PM CDT): Failed graft/Bank K centrally with epi defect - resolved No infiltrate Decrease prednisolone to qd OS Stop bacitracin ointment Restart bromfenac O.S. Q.day RTC 1yr Assessment & Plan (12/18/2018 10:20 AM CDT): Failed graft/Bank K centrally with epi defect, improved from prior with subjective improvement as well. New small epi defect over nasal band K but improving central defect. Fewer KP seen today. Possible rejection (although no cell/hypopyon) and may be chronic failure No infiltrate Decrease prednisolone to 5x/day OS Continue bacitracin ointment TID for ABX coverage + lubrication RTC in 2 weeks for repeat eval Assessment & Plan (12/11/2018 10:52 AM CDT): Failed graft/Bank K centrally with epi defect KP seen today. Pt self increased prednisolone to TID (from baseline dose of QD) and is feeling better. Possible rejection (although no cell/hypopyon) No infiltrate but surrounding haze Increase prednisolone to 6x/day OS -increase bacitracin ointment TID for ABX coverage + lubrication RTC in 1 week w/Neli for repeat eval. Assessment & Plan (08/30/2018 9:47 AM BARREL ENDSHAKER ADJUSTER): Failed graft/Bank K Stable Band keratopathy of left eye 08/30/2018 Assessment & Plan (10/03/2023 10:31 AM CDT): Comfortable observe Assessment & Plan (12/11/2018 11:01 AM CDT): Nasally w/branching crystalline edges but no active infiltrate or overlying epithelial defect Observe/document with photo RTC 1 week (Dr. Quinteros) Assessment & Plan (08/30/2018 9:47 AM BARREL ENDSHAKER ADJUSTER): Stable PVD (posterior vitreous detachment), right eye 0 08/30/2018 Assessment & Plan (08/30/2018 9:48 AM BARREL ENDSHAKER ADJUSTER): Floaters without flashing lights Observe Return in 1 year with dilated exam Benign neoplasm of eyelid 10/14/2016 Basal cell carcinoma (BCC) of eyelid 08/16/2016 Atypical migraine 01/25/2012 Social History Tobacco Use Types Packs/Day Years Used Date Smoking Tobacco: Former Passive Smoke Exposure: Never Tobacco Cessation:Counseling Given: Not Answered Sex and Gender Information Value Date Recorded Sex Assigned at Not on file Legal Sex Male 3:20 AM BARREL ENDSHAKER ADJUSTER Gender Identity Not on file Sexual Orientation Not on file Last Filed Vital Signs Vital Sign Reading Time Taken Comments Blood Pressure 132/79 05/21/2024 11:38 AM BARREL ENDSHAKER ADJUSTER Pulse 75 05/21/2024 11:38 AM BARREL ENDSHAKER ADJUSTER Temperature 36.8 C (98.2 F) 05/21/2024 11:38 AM BARREL ENDSHAKER ADJUSTER Respiratory Rate - - Oxygen Saturation 98% 05/21/2024 11:38 AM BARREL ENDSHAKER ADJUSTER Inhaled Oxygen Concentration - - Weight 101.2 kg (223 lb) 05/21/2024 11:38 AM BARREL ENDSHAKER ADJUSTER Height 185.4 cm (6' 1 ) 05/21/2024 11:38 AM BARREL ENDSHAKER ADJUSTER Body Mass Index 29.42 05/21/2024 11:38 AM BARREL ENDSHAKER ADJUSTER Plan of Treatment Not on file Procedures Procedure Name Priority Date/Time Associated Diagnosis Comments SERUM HEPATITIS PANEL Routine 01/10/2014 4:10 PM CDT from Last 3 Months or Most Recently Relevant to Health Maintenance Results * Serum Hepatitis panel (01/10/2014 4:10 PM CDT) HBV surface ag Negative Negative HISTO RICAL RESULTS HBV core ab, IgM Negative Negative HISTORICAL RESULTS HCV ab Negative Negative HISTORICAL RESULTS HAV ab, IgM Negative Negative HISTORIC AL RESULTS Serum 01/10/2014 4:10 PM CDT us Don León MD LAB BLOOD ORDERABLES Final Resu lt HISTORICAL RESULTS from Last 3 Months or Most Recently Relevant to Health Maintenance Insurance [facility] BENEFIT PLAN [facility] BENEFIT PLAN [facility] BENEFIT PLAN
--- OUTSIDE RECORDS SUMMARY | 2024-10-08 16:09 | XMS_ITS | Clinical Summary ---
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
--- OUTSIDE RECORDS SUMMARY | 2024-10-08 16:09 | XMS_ITS | Encounter Summary ---
Author Organization [facility] Address [address] [facility] [place] [address] Care Team Providers Care Medical Appointment Clerk Name Role Phone Unavailable Primary Care Provider Unavailabl e Encounter Details Date Type Department Care Team (Late st Contact Info) Description 09/28/2020 Lab Requisition [facility] [address] [facility] [facility] [address] [facility] [address] [place] [address] Lisa Olson MD [address] [facility] [address] [place] [address] Social History Tobacco Use Types Packs/Day Years Used Date Smoking Tobacco: Never Smokeless Tobacco: Never Alcohol Use Standard Drinks/Week Comments No 0 (1 standard drink = 0.6 oz pur e alcohol) Sex and Gender Information Value Date Recorded Sex Assigned at Not on file Gender Identity Not on file Sexual Orientation Not on file documented as of this encounter Plan of Treatment Not on file documented as of this encounter Procedures Procedure Name Priority Date/Time Associated Diagnosis Comments DERMATOPATHOLOGY Routine 09/25/2020 12:0 0 AM CDT documented in this encounter Results * DERMATOPATHOLOGY (09/25/2020 12:00 AM CDT) Case Report Dermatopathology Report Case: [id number] Authorizing Provider: Lisa Olson MD Collected: 09/25/2020 12:00 AM Ordering Location: [facility] Received: 09/28/2020 11:07 AM Pathologist: Ashley Banks MD Specimen: Skin, left nasal sidewall 3:31 PM CDT DERMATOPATHOLOGY LABORATORY Final Diagnosis Specimen A. SKIN, left nasal sidewall: SQUAMOUS CELL CARCINOMA, WELL DIFFERENTIATED (C44.321) 3:31 PM CDT DERMATOPATHOLOGY LABORATORY Clinical History AK vs SCC. 3:31 PM CDT DERMATOPATHOLOGY LABORATORY Gross Description Specimen A: Received is one formalin filled container labeled with the patient's name and designated left nasal sidewall. The specimen consists of a shave biopsy measuring [id number]. Jar 0. 3:31 PM CDT DERMATOPATHOLOGY LABORATORY Microscopic Description Specimen A. SKIN, left nasal sidewall: Arising in the epidermis and extending into the dermis there are irregularly shaped aggregates of keratinocytes showing evidence of premature cornification. 3:31 PM CDT DERMATOPATHOLOGY LABORATORY Disclaimer An external and internal positive and negative controls are appropriate for the histochemical, immunohistochemical and immunofluorescence stain(s) in this case (if any), except where stated explicitly. The performance characteristics of the stain(s) cited in this report were developed and its performance characteristic determined by the Dermatopathology Laboratory at [facility], directed by Dr. Sunitha Banks. These tests need not be, and therefore are not, approved by the [place] Food and Drug Administration. The tests are used for clinical purposes. Billing Codes Specimen Charges Stain Charges 28418 1 3:31 PM CDT DERMATOPATHOLOGY LABORATORY Embedded Images 3:31 PM CDT DERMATOPATHOLOGY LABORATORY Pathology/Cytolog y TISSUE SPECIMEN FROM SKIN / Unknown 09/25/2020 09/28/2020 11:07 AM CDT Lisa Olson MD LAB - PATHOLOGY/CY TOLOGY ORDERABLES DERMATOPATHOLOGY LABORATORY [facility] - Department of Dermatology [address], [address] [phone] documented in this encounter Visit Diagnoses Not on filedocumented in this encounter
--- OUTSIDE RECORDS SUMMARY | 2024-10-08 16:09 | XMS_ITS | Encounter Summary ---
Author Organization [facility] Address [address] [place] [address] Phone Care Team Providers Care Magnetic Healer Name Role Phone Meghan Campo MD Primary Care Provider [phone] Isidro Landon MD Primary Care Provider [phone] Unknown, Notinfile Primary Care Provider Unavail able Encounter Details Date Type Department Care Team (Latest Contact Info) Description 07/23/2019 Orders Only [facility] Penny Ingram, LEON [address] [facility] [address] [place] [address] Social History Tobacco Use Types Packs/Day Years Used Date Smoking Tobacco: Former Sex and Gender Information Value Date Recorded Sex Assigned at Not on file 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 Gender Identity Not on file Sexual Orientation Not on file documented as of this encounter Plan of Treatment Not on file documented as of this encounter Procedures Procedure Name Priority Date/Time Associated Diagnosis Comments SCAN - RADIOLOGY/IMAGING 07/23/2019 CARDIOLOGY DOCUMENT SCAN 07/23/2019 documented in this encounter Results * SCAN - RADIOLOGY/IMAGING (07/23/2019) Anatomical Region Laterality Modality Other us Penny Ingram RN Final Result * CARDIOLOGY DOCUMENT SCAN (07/23/2019) Anatomical Region Laterality Modality Other us Penny Ingram RN CV CARDIAC SERVICES P ROCEDURES Edited Result - Final documented in this encounter Visit Diagnoses Not on filedocumented in this encounter Care Teams Magnetic Healer Relationship Specialty Start Date End Date Mgehan Campo MD [address] [address] PCP - General 11/02/16 05/08/23 Isidro Landon MD [address] [facility] [place] [address] PCP - General Family Medicine 05/09/23 10/02/24 Unknown, Notinfile PCP - General 10/03/24 10/03/24 documented as of this encounter
--- OUTSIDE RECORDS SUMMARY | 2024-10-08 16:09 | XMS_ITS | Encounter Summary ---
Author Organization [facility] Address [address] [place] [address] Phone Care Team Providers Care Assistant Surveyor Name Role Phone Meghan Campo MD Primary Care Provider [phone] Isidro Landon MD Primary Care Provider [phone] Unknown, Notinfile Primary Care Provider Unavail able Encounter Details Date Type Department Care Team (Latest Contact Info) Description 11/21/2016 Orders Only [facility] Penny Ingram, LEON [address] [facility] [address] [place] [address] Social History Tobacco Use Types Packs/Day Years Used Date Smoking Tobacco: Former Sex and Gender Information Value Date Recorded Sex Assigned at Not on file 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 Gender Identity Not on file Sexual Orientation Not on file documented as of this encounter Plan of Treatment Not on file documented as of this encounter Procedures Procedure Name Priority Date/Time Associated Diagnosis Comments SCAN - RADIOLOGY/IMAGING 11/21/2016 documented in this encounter Results * SCAN - RADIOLOGY/IMAGING (11/21/2016) Anatomical Region Laterality Modality Other Result [facility] Penny Ingram RN Final Result documented in this encounter Visit Diagnoses Not on filedocumented in this encounter Care Teams Assistant Surveyor Relationship Specialty Start Date End Date Meghan Campo MD [address] [address] PCP - General 11/02/16 05/08/23 Isidro Landon MD [address] [place] [address] PCP - General Family Medicine 05/09/23 10/02/24 Unknown, Notinfile PCP - General 10/03/24 10/03/24 documented as of this encounter
--- OUTSIDE RECORDS SUMMARY | 2024-10-08 16:09 | XMS_ITS | Encounter Summary ---
Author Organization [facility] Address [address] [place] [address] Phone Care Team Providers Care Spindle Tester Name Role Phone Meghan Campo MD Primary Care Provider [phone] Isidro Landon MD Primary Care Provider [phone] Unknown, Notinfile Primary Care Provider Unavail able Encounter Details Date Type Department Care Team (Latest Contact Info) Description 06/29/2015 Orders Only [facility] Penny Ingram, LEON [address] [facility] [address] [place] [address] Social History Tobacco Use Types Packs/Day Years Used Date Smoking Tobacco: Former Sex and Gender Information Value Date Recorded Sex Assigned at Not on file 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 Sex Male 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 FLASK 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 Gender Identity Not on file Sexual Orientation Not on file documented as of this encounter Plan of Treatment Not on file documented as of this encounter Procedures Procedure Name Priority Date/Time Associated Diagnosis Comments SCAN - RADIOLOGY/IMAGING 06/29/2015 CARDIOLOGY DOCUMENT SCAN 06/29/2015 documented in this encounter Results * SCAN - RADIOLOGY/IMAGING (06/29/2015) Anatomical Region Laterality Modality Other us Penny Ingram RN Final Result * CARDIOLOGY DOCUMENT SCAN (06/29/2015) Anatomical Region Laterality Modality Other us Penny Ingram RN CV CARDIAC SERVICES P ROCEDURES Edited Result - Final documented in this encounter Visit Diagnoses Not on filedocumented in this encounter Care Teams Spindle Tester Relationship Specialty Start Date End Date Meghan Campo MD [address] [address] PCP - General 11/02/16 05/08/23 Isidro Landon MD [address] [facility] [place] [address] PCP - General Family Medicine 05/09/23 10/02/24 Unknown, Notinfile PCP - General 10/03/24 10/03/24 documented as of this encounter
--- OUTSIDE RECORDS SUMMARY | 2024-10-08 16:09 | XMS_ITS | Encounter Summary ---
Author Organization [facility] Address [address] [place] [address] Phone Care Team Providers Care Grinder Needle Tip Name Role Phone Meghan Campo MD Primary Care Provider [phone] Isidro Landon MD Primary Care Provider Unknown, Notinfile Primary Care Provider Unavail able Encounter Details Date Type Department Care Team (Latest Contact Info) Description 12/15/2021 Orders Only [facility] Penny Ingram, LEON [address] [facility] [address] [place] [address] Social History Tobacco Use Types Packs/Day Years Used Date Smoking Tobacco: Former Sex and Gender Information Value Date Recorded Sex Assigned at Not on file 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 Gender Identity Not on file Sexual Orientation Not on file documented as of this encounter Plan of Treatment Not on file documented as of this encounter Procedures Procedure Name Priority Date/Time Associated Diagnosis Comments SCAN - RADIOLOGY/IMAGING 12/15/2021 CARDIOLOGY DOCUMENT SCAN 12/15/2021 documented in this encounter Results * SCAN - RADIOLOGY/IMAGING (12/15/2021) Anatomical Region Laterality Modality Other us Penny Ingram RN Final Result * CARDIOLOGY DOCUMENT SCAN (12/15/2021) Anatomical Region Laterality Modality Other us Penny Ingram RN CV CARDIAC SERVICES P ROCEDURES Final Result documented in this encounter Visit Diagnoses Not on filedocumented in this encounter Care Teams Grinder Needle Tip Relationship Specialty Start Date End Date Meghan Campo MD [address] [address] PCP - General 11/02/16 05/08/23 Isidro Landon MD [address] [facility] [place] [address] PCP - General Family Medicine 05/09/23 10/02/24 Unknown, Notinfile PCP - General 10/03/24 10/03/24 documented as of this encounter
--- OUTSIDE RECORDS SUMMARY | 2024-10-08 16:09 | XMS_ITS | Encounter Summary ---
Author Organization [facility] Address [address] [place] [address] Phone Care Team Providers Care Atm Mechanic Name Role Phone Meghan Campo MD Primary Care Provider [phone] Isidro Landon MD Primary Care Provider [phone] Unknown, Notinfile Primary Care Provider Unavail able Encounter Details Date Type Department Care Team (Latest Contact Info) Description 04/19/2014 Orders Only [facility] Penny Ingram, LEON [address] [facility] [address] [place] [address] Social History Tobacco Use Types Packs/Day Years Used Date Smoking Tobacco: Former Sex and Gender Information Value Date Recorded Sex Assigned at Not on file 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 Gender Identity Not on file Sexual Orientation Not on file documented as of this encounter Plan of Treatment Not on file documented as of this encounter Procedures Procedure Name Priority Date/Time Associated Diagnosis Comments CARDIOLOGY DOCUMENT SCAN 04/19/2014 documented in this encounter Results * CARDIOLOGY DOCUMENT SCAN (04/19/2014) Anatomical Region Laterality Modality Other Penny Ingram RN CV CARDIAC SERVICES P ROCEDURES Final Result documented in this encounter Visit Diagnoses Not on filedocumented in this encounter Care Teams Atm Mechanic Relationship Specialty Start Date End Date Meghan Campo MD [address] [place] [address] PCP - General 11/02/16 05/08/23 Isidro Landon MD [address] [place] [address] PCP - General Family Medicine 05/09/23 10/02/24 Unknown, Notinfile PCP - General 10/03/24 10/03/24 documented as of this encounter
--- OUTSIDE RECORDS SUMMARY | 2024-10-08 16:09 | XMS_ITS | Encounter Summary ---
Author Organization [facility] Address [address] [place] [address] Phone Care Team Providers Care Explosive Ordnance Manager Name Role Phone Meghan Campo MD Primary Care Provider + [phone] Isidro Landon MD Primary Care Provider [phone] Unknown, Notinfile Primary Care Provider Unavail able Encounter Details Date Type Department Care Team (Latest Contact Info) Description 11/24/2017 Orders Only [facility] Penny Ingram, LEON [address] [facility] [address] [place] [address] Social History Tobacco Use Types Packs/Day Years Used Date Smoking Tobacco: Former Sex and Gender Information Value Date Recorded Sex Assigned at Not on file 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 Gender Identity Not on file Sexual Orientation Not on file documented as of this encounter Plan of Treatment Not on file documented as of this encounter Procedures Procedure Name Priority Date/Time Associated Diagnosis Comments SCAN - RADIOLOGY/IMAGING 11/24/2017 documented in this encounter Results * SCAN - RADIOLOGY/IMAGING (11/24/2017) Anatomical Region Laterality Modality Other Result [facility] Penny Ingram RN Final Result documented in this encounter Visit Diagnoses Not on filedocumented in this encounter Care Teams Explosive Ordnance Manager Relationship Specialty Start Date End Date Meghan Campo MD [address] [address] PCP - General 11/02/16 05/08/23 Isidro Landon MD [address] [place] [address] PCP - General Family Medicine 05/09/23 10/02/24 Unknown, Notinfile PCP - General 10/03/24 10/03/24 documented as of this encounter
--- OUTSIDE RECORDS SUMMARY | 2024-10-08 16:09 | XMS_ITS | Clinical Summary ---
Author Organization [facility] Address [address] [place] [address] Care Team Providers Care Grain Commodity Manager Name Role Phone Unavailable Primary Care Provider Unavailabl e Source Comments [facility],non-owned Affiliates and Associated Physician Practices is amultiple site organization consisting of ambulatory clinics and hospital sitesin [place], [place], [place] and [place]. This disclosure is being madepursuant to the Care Everywhere program and may not contain all information available regarding this patient. Last updated 18.[facility] Allergies Active Allergy Reactions Criticality Noted Date Comments Penicillins 02/05/2012 Medications * Be aware that medications may not be up to date on this document. Alwaysverify current medications with the patient. Medication Sig Dispensed Refills Start Date End Date Status Propranolol HCl (INDERAL PO) Active Cyclobenzaprine HCl (FLEXERIL PO) Active Hydrocodone-Acetaminophen (VICODIN PO) Active Pantoprazole Sodium (PROTONIX PO) Active Active Problems Problem Noted Date Diagnosed Date Displacement of lumbar inter vertebral disc without myelopathy 02/05/2012 Gall bladder disease History of skin cancer Social History Tobacco Use Types Packs/Day Years [...] Sign Reading Time Taken Comments Blood Pressure 110/70 02/02/2012 9:15 PM CDT Pulse 76 02/02/2012 9:15 PM CDT Temperature - - Respiratory Rate - - Oxygen Saturation - - Inhaled Oxygen Concentration - - Weight 93 kg (205 lb) 02/02/2012 9:15 PM CDT Height 185.4 cm (6' 1 ) 02/02/2012 9:15 PM CDT Body Mass Index 27.05 02/02/2012 9:15 PM CDT Plan of Treatment Health Maintenance Due Date Last Done Comments COLOGUARD (AGES 45-75) - COL ON CA SCREENING 1961 COLON MONITORING 1961 COLONOSCOPY - COLON CA SCREENING 1961 CT COLONOGRAPHY - COLON CA SCREENING 1961 Colorectal Cancer Screening 1961 FIT - COLON CA SCREENING 1961 FLEX SIG - COLON CA SCREENING 1961 LIPID TESTING 1961 HIV SCREENING 01/06/1976 HEPATITIS C SCREENING 01/01/1979 DTAP/TDAP/TD VACCINES (1 - Tdap) 01/06/1980 PNEUMOCOCCAL VACCINE 50+ (1 of 1 - PCV) 2011 ZOSTER VACCINE (1 of 2) 2011 COVID-19 VACCINE (1 - 2023-2 5 season) 2024 INFLUENZA VACCINE (#1) 2024 DEPRESSION SCREENING 07/10/2024 Respiratory Syncytial Virus (RSV) Vaccine Pt: or over 60 yrs (1 - 1-dose 75+ series) 01/06/2036 HEPATITIS B VACCINE Aged Out No longe r eligible based on patient's age to complete this topic HIB VACCINE Aged Out No longer eligi ble based on patient's age to complete this topic HPV VACCINE Aged Out No longer eligi ble based on patient's age to complete this topic MENINGOCOCCAL (Group B) VACC INE SHARED DECISION-MAKING Aged Out No longer eligibl e based on patient's age to complete this topic MENINGOCOCCAL GROUPS A/C/Y/W VACCINE Aged Out No longer eligible b ased on patient's age to complete this topic PNEUMOCOCCAL VACCINE Aged Out No long er eligible based on patient's age to complete this topic
--- OUTSIDE RECORDS SUMMARY | 2024-10-08 16:09 | XMS_ITS ---
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 Quinteros) Assessment & Plan (08/30/2018 9:47 AM DEFENSE ANALYST): Stable PVD (posterior vitreous detachment), right eye 0 08/30/2018 Assessment & Plan (08/30/2018 9:48 AM DEFENSE ANALYST): Floaters without flashing lights Observe Return in 1 year with dilated exam Benign neoplasm of eyelid 10/14/2016 Basal cell carcinoma (BCC) of eyelid 08/16/2016 Atypical migraine 01/25/2012 Current Treatment and Therapy Plans No current plan information found. Past Treatment and Therapy Plans No past plan information found. Lifetime Dose Tracking * Chemical Lifetime Dose Automatic Entry Manual Entr y DLP 1,127 mGycm 1,127 mGycm 0 mGycm
--- OUTSIDE RECORDS SUMMARY | 2024-10-08 16:09 | XMS_ITS | Encounter Summary ---
Author Organization [facility] Address [address] [place] [address] Phone Care Team Providers Care Manager Machine Name Role Phone Meghan Campo MD Primary Care Provider [phone] Isidro Landon MD Primary Care Provider [phone] Unknown, Notinfile Primary Care Provider Unavail able Encounter Details Date Type Department Care Team (Latest Contact Info) Description 06/23/2016 Orders Only [facility] Penny Ingram, LEON [address] [facility] [address] [place] [address] Social History Tobacco Use Types Packs/Day Years Used Date Smoking Tobacco: Former Sex and Gender Information Value Date Recorded Sex Assigned at Not on file Legal Sex Male 3:20 AM COLLECTIONS DIRECTOR Gender Identity Not on file Sexual Orientation Not on file documented as of this encounter Plan of Treatment Not on file documented as of this encounter Procedures Procedure Name Priority Date/Time Associated Diagnosis Comments CARDIOLOGY DOCUMENT SCAN 06/23/2016 documented in this encounter Results * CARDIOLOGY DOCUMENT SCAN (06/23/2016) Anatomical Region Laterality Modality Other Penny Ingram RN [facility] P ROCEDURES Final Result documented in this encounter Visit Diagnoses Not on filedocumented in this encounter Care Teams Manager Machine Relationship Specialty Start Date End Date Meghan Campo MD [address] [place] [address] PCP - General 11/02/16 05/08/23 Isidro Landon MD [address] [facility] [place] [address] PCP - General Family Medicine 05/09/23 10/02/24 Unknown, Notinfile PCP - General 10/03/24 10/03/24 documented as of this encounter
--- OUTSIDE RECORDS SUMMARY | 2024-10-08 16:09 | XMS_ITS | Clinical Summary ---
Author Organization [facility] Address [address] [place] [address] Care Team Providers Care Verse Writer Name Role Phone Unavailable Primary Care Provider Unavailabl e Allergies Active Allergy Reactions Criticality Noted Date [...] Observe F/u 1yr w/ , 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 Quinteros) Assessment & Plan (08/30/2018 9:47 AM CARDIOLOGY MANAGER): Stable PVD (posterior vitreous detachment), right eye 0 08/30/2018 Assessment & Plan (08/30/2018 9:48 AM CARDIOLOGY MANAGER): Floaters without flashing lights Observe Return in 1 year with dilated exam Benign neoplasm of eyelid 10/14/2016 Basal cell carcinoma (BCC) of eyelid 08/16/2016 Atypical migraine 01/25/2012 Encounters Date Type Department Care Team Description 10/03/2024 8:15 AM CDT Office Visit [facility] [address] [place] [address] Amrita Andrade MD PhD S/P PKP OS (Primary Dx); Band keratopathy of left eye from Last 3 Months Surgical History Surgery Date Site/Laterality Comments PENETRATING KERATOPLASTY ANTERIOR VITRECTOMY CATARACT EXTRACTION 07/10/2004 - 07/09/2005 Left ACIOL Medical History Medical History Date Comments Personal history of other ve nous thrombosis and embolism H/O blood clots - (Added by TW Conv) Secondary glaucoma BK (band keratopathy), right KCS (keratoconjunctivitis sicca) PVD (posterior vitreous detachment), right Skin cancer 2020 Family History Medical History Relation Name Comments Heart disease Father Family history of cardiac disorder - (Added by TW Conv) Hypertension Father Family history of hypertension - (Added by TW Conv) Lung cancer Father Family history of lung cancer - (Added by TW Conv) Prostate cancer Father Family histo ry of malignant neoplasm of prostate - (Added by TW Conv) Diabetes type II Mother Family hist ory of type 2 diabetes mellitus - (Added by TW Conv) Hypertension Mother Family history of hypertension - (Added by TW Conv) Kidney disease Paternal Grandfather Famil y history of kidney disease - (Added by TW Conv) Relation Name Status Comments Father Mother Paternal Grandfather Social History Tobacco Use Types Packs/Day Years Used Date Smoking Tobacco: Former Passive Smoke Exposure: Never Tobacco Cessation:Counseling Given: Not Answered Sex and Gender Information Value Date Recorded Sex Assigned at Not on file Legal Sex Male 3:20 AM CARDIOLOGY MANAGER Gender Identity Not on file Sexual Orientation Not on file Obstetrics History Last Filed Vital Signs Vital Sign Reading Time Taken Comments Blood Pressure 132/79 05/21/2024 11:38 AM CARDIOLOGY MANAGER Pulse 75 05/21/2024 11:38 AM CARDIOLOGY MANAGER Temperature 36.8 C (98.2 F) 05/21/2024 11:38 AM CARDIOLOGY MANAGER Respiratory Rate - - Oxygen Saturation 98% 05/21/2024 11:38 AM CARDIOLOGY MANAGER Inhaled Oxygen Concentration - - Weight 101.2 kg (223 lb) 05/21/2024 11:38 AM CARDIOLOGY MANAGER Height 185.4 cm (6' 1 ) 05/21/2024 11:38 AM CARDIOLOGY MANAGER Body Mass Index 29.42 05/21/2024 11:38 AM CARDIOLOGY MANAGER Plan of Treatment Health Maintenance Due Date Last Done Comments Colon Cancer Screening-Colonoscopy 1961 Depression Screening 1961 Prostate Cancer Screening-PSA 1961 DTaP/Tdap/Td Vaccine (1 - Tdap) 01/06/1972 Regular Well Visit/Exam 18-64 1979 Zoster Vaccine (1 of 2) 2011 Covid-19 Vaccine (4 - 2023-2 5 season) 2024 04/30/2021, 09/09/2020, 08/12/2020 Influenza Vaccine (Season Ended) 2025 05/06/2016, 05/14/2013 Hepatitis C Screening Completed 01/10/2014 Hepatitis B Screening Completed 03/04/2020 , 06/25/2018, 01/04/2018 Pneumococcal vaccine <65 Aged Out 022, 04/09/2015 No longer eligible based on patient's age to complete this topic Procedures Procedure Name Priority Date/Time Associated Diagnosis [...] Most Recently Relevant to Health Maintenance Insurance [facility] [employer] [facility] [employer]
== END 2024-10-08 14:36 | disposition home or self-care (01) ==
LOC: ANHBWCIMG 14:38
PROVIDERS: PCP Nurse Practitioner Adult Health; Visit Provider Nurse Practitioner Adult Health
DX: R91.8 Other nonspecific abnormal finding of lung field (principal); Z80.1 Family history of malignant neoplasm of trachea, bronchus and lung
CPT/HCPCS: 71046

== ENCOUNTER 2024-10-14 08:55 | Outpatient (CLI) | payer OTHER, SELFPAY ==
--- NOTE | ~2024-10-14 | CT_ITS ---
CT Scan of the Chest without Contrast: Clinical Indication: Other disorder of lung COMPARISON: 06/13/2022 Technique: Contiguous sections were acquired throughout the chest without intravenous contrast. Dose reduction technique was used on this scan by utilizing automated exposure control and iterative recon struction technique. The dose-length product (DLP) was 484.76 mGy-cm. Findings: There is no evidence of any significant mediastinal, hilar or axillary lymphadenopathy. The mediastin al soft tissues appear normal. There is no evidence of pleural or pericardial effusion. The lungs are clear. No pulmonary nodules or infiltrates are noted. Images through the upper abdomen reveal no abnormalities. Impression: No significant abnormalities seen. Reviewed, dictated and finalized at location . Impression: No significant abnormalities seen.
== END 2024-10-14 08:56 | disposition home or self-care (01) ==
PROVIDERS: PCP Nurse Practitioner Adult Health; Visit Provider Nurse Practitioner Adult Health
DX: J98.4 Other disorders of lung (principal); R93.89 Abnormal findings on diagnostic imaging of other specified body structures
CPT/HCPCS: 71250